=== PATIENT | male | born 1950 | race African-American/Black ===

== ENCOUNTER 2018-11-05 15:24 | Emergency (ER) | payer MEDICARE ==
[~2018-11-05] VITALS: Ht 180.3 cm; Wt 70.0 kg
[2018-11-05] MEDS ORDERED: BACITRACIN ZINC OINT UDPKT TOP ONE (18:00)
[2018-11-05] MEDS ORDERED: LIDOCAINE HCL 1% 20ML VIAL (Pyxis) INJ INFIL ONE (18:00)
[2018-11-05 18:40] VITALS: BP 150/90
[2018-11-05] MEDS ORDERED: IBUPROFEN 600MG TABLET PO ONE (18:45)
== END 2018-11-05 18:50 | disposition home or self-care (01) ==
LOC: ER 15:24
DX: R20.2 Paresthesia of skin (principal); S01.111A Laceration without foreign body of right eyelid and periocular area, initial encounter; I10 Essential (primary) hypertension; E11.9 Type 2 diabetes mellitus without complications; Y04.2XXA Assault by strike against or bumped into by another person, initial encounter; Y93.89 Activity, other specified; Y92.233 Cafeteria of hospital as the place of occurrence of the external cause
CPT/HCPCS: 12013; 99283; J3490

== ENCOUNTER 2018-11-07 03:18 | Emergency (ER) | payer MEDICARE ==
[~2018-11-07] VITALS: Ht 180.3 cm; Wt 71.0 kg
[2018-11-07 07:52] LABS: CLARITY URINE CLEAR (CLEAR); COLOR URINE YELLOW (YELLOW); KETONES URINE NEGATIVE (NEGATIVE); LEUKOCYTE ESTERASE URINE NEGATIVE (NEGATIVE); NITRITE URINE NEGATIVE (NEGATIVE); OCCULT BLOOD URINE NEGATIVE (NEGATIVE); PROTEIN URINE NEGATIVE (NEGATIVE); SPECIFIC GRAVITY URINE 1.012 (1.005-1.030); UROBILINOGEN URINE 0.2 E.U./dL (0.2-1.0)
[2018-11-07] MEDS ORDERED: ACETAMINOPHEN 325MG TABLET PO ONE (08:30)
[2018-11-07 09:53] LABS: BASOPHILS % 1.1 % (0.0-2.0); EOSINOPHILS % 2.1 % (0.0-5.0); HEMATOCRIT. 40.7 % (42.0-52.0); HEMOGLOBIN. 13.1 g/dL (14.0-18.0); LYMPHOCYTES % 27.7 % (20.0-50.0); MEAN CORPUSCULAR HEMOGLOBIN 27.1 pg (28.0-32.0); MONOCYTES % 13.8 % (2.0-8.0); NEUTROPHILS % 55.3 % (40.0-76.0); PLATELET 334 x1000/uL (130-400); RED BLOOD CELL COUNT 4.85 mill/uL (4.7-6.1); RED CELL DISTRIBUTION WIDTH 14.6 % (11.6-14.6)
[2018-11-07 10:00] LABS: CHLORIDE 110 mEq/L (98-107)
[2018-11-07 12:06] VITALS: BP 121/75
== END 2018-11-07 12:18 | disposition home or self-care (01) ==
LOC: ER 07:19
DX: R10.9 Unspecified abdominal pain (principal); M79.606 Pain in leg, unspecified; E11.9 Type 2 diabetes mellitus without complications; I10 Essential (primary) hypertension; Z87.891 Personal history of nicotine dependence; Z88.5 Allergy status to narcotic agent; Y08.89XA Assault by other specified means, initial encounter; Y93.89 Activity, other specified; Y92.89 Other specified places as the place of occurrence of the external cause; Y99.8 Other external cause status
CPT/HCPCS: 36415; 99283

== ENCOUNTER 2018-11-07 20:18 | Emergency (ER) | payer MEDICARE ==
[~2018-11-07] VITALS: Ht 180.3 cm; Wt 71.0 kg
[2018-11-07 20:52] VITALS: BP 139/83
== END 2018-11-08 02:35 | disposition left against medical advice (07) ==
LOC: ER 20:18
DX: Z53.21 Procedure and treatment not carried out due to patient leaving prior to being seen by health care provider (principal)

== ENCOUNTER 2018-11-11 22:01 | Emergency (ER) | payer MEDICARE ==
[~2018-11-11] VITALS: Ht 180.3 cm; Wt 66.0 kg
[2018-11-11] MEDS ORDERED: IBUPROFEN 800MG TABLET PO ONE (23:45)
[2018-11-12 00:12] VITALS: BP 128/81
== END 2018-11-12 00:22 | disposition home or self-care (01) ==
LOC: ER 23:35
DX: G89.29 Other chronic pain (principal); M79.604 Pain in right leg; M79.605 Pain in left leg; R20.0 Anesthesia of skin; Z48.02 Encounter for removal of sutures
CPT/HCPCS: 99282

== ENCOUNTER 2019-02-19 19:10 | Emergency (ER) | payer BC, MEDICARE ==
[~2019-02-19] VITALS: Ht 180.3 cm; Wt 70.0 kg
[2019-02-19] MEDS ORDERED: GABAPENTIN 300MG CAPSULE PO ONE (22:15)
[2019-02-20 04:20] VITALS: BP 139/85
== END 2019-02-20 06:47 | disposition home or self-care (01) ==
LOC: ER 19:10
DX: M79.606 Pain in leg, unspecified (principal); G89.29 Other chronic pain; I10 Essential (primary) hypertension; Z88.5 Allergy status to narcotic agent; Z98.890 Other specified postprocedural states
CPT/HCPCS: 99283

== ENCOUNTER 2019-04-07 03:04 | Emergency (ER) | payer BC ==
[~2019-04-07] VITALS: Ht 180.3 cm; Wt 77.0 kg
[2019-04-07] MEDS ORDERED: IBUPROFEN 600MG TABLET PO ONE (04:15)
[2019-04-07 04:22] VITALS: BP 115/71
== END 2019-04-07 04:35 | disposition home or self-care (01) ==
LOC: ER 03:04
DX: M79.672 Pain in left foot (principal); M79.671 Pain in right foot; I10 Essential (primary) hypertension; Z88.5 Allergy status to narcotic agent
CPT/HCPCS: 99282

== ENCOUNTER 2019-04-07 20:06 | Emergency (ER) | payer BC ==
[~2019-04-07] VITALS: Ht 180.3 cm; Wt 78.0 kg
[2019-04-07] MEDS ORDERED: IBUPROFEN 600MG TABLET PO ONE (22:30)
[2019-04-07] MEDS ORDERED: GABAPENTIN 300MG CAPSULE PO ONE (22:30)
[2019-04-07 23:11] VITALS: BP 141/86
== END 2019-04-07 23:12 | disposition home or self-care (01) ==
LOC: ER 20:06
DX: G89.29 Other chronic pain (principal); I10 Essential (primary) hypertension; G62.9 Polyneuropathy, unspecified; Z88.5 Allergy status to narcotic agent
CPT/HCPCS: 99283

== ENCOUNTER 2019-04-09 04:56 | Emergency (ER) | payer BC ==
[~2019-04-09] VITALS: Ht 180.3 cm; Wt 77.0 kg
[2019-04-09 05:50] VITALS: BP 131/83
[2019-04-09] MEDS ORDERED: IBUPROFEN 600MG TABLET PO ONE (07:00)
== END 2019-04-09 07:29 | disposition home or self-care (01) ==
LOC: ER 04:56
DX: G57.93 Unspecified mononeuropathy of bilateral lower limbs (principal); F17.210 Nicotine dependence, cigarettes, uncomplicated; I10 Essential (primary) hypertension
CPT/HCPCS: 99283

== ENCOUNTER 2019-04-10 03:46 | Emergency (ER) | payer BC ==
[~2019-04-10] VITALS: Ht 180.3 cm; Wt 75.9 kg
[2019-04-10 06:15] VITALS: BP 140/78
== END 2019-04-10 06:30 | disposition left against medical advice (07) ==
LOC: ER 03:46
DX: Z53.21 Procedure and treatment not carried out due to patient leaving prior to being seen by health care provider (principal)

== ENCOUNTER 2019-04-10 22:54 | Emergency (ER) | payer BC ==
[~2019-04-10] VITALS: Ht 180.3 cm; Wt 78.0 kg
[2019-04-11] MEDS ORDERED: IBUPROFEN 600MG TABLET PO ONE (02:45)
[2019-04-11 02:49] VITALS: BP 130/85
== END 2019-04-11 04:48 | disposition left against medical advice (07) ==
LOC: ER 22:54
DX: M79.672 Pain in left foot (principal); M79.671 Pain in right foot; R53.83 Other fatigue; Z59.0 Homelessness
CPT/HCPCS: 99282

== ENCOUNTER 2019-04-11 22:40 | Emergency (ER) | payer BC ==
[~2019-04-11] VITALS: Ht 180.3 cm; Wt 78.0 kg
[2019-04-12 02:20] VITALS: BP 125/84
== END 2019-04-12 02:22 | disposition home or self-care (01) ==
LOC: ER 22:40
DX: M79.672 Pain in left foot (principal); M79.671 Pain in right foot; G62.9 Polyneuropathy, unspecified; F31.9 Bipolar disorder, unspecified; I10 Essential (primary) hypertension; F20.9 Schizophrenia, unspecified; Z88.5 Allergy status to narcotic agent; Z59.0 Homelessness
CPT/HCPCS: 99281

== ENCOUNTER 2019-04-14 19:21 | Emergency (ER) | payer BC ==
[~2019-04-14] VITALS: Ht 180.3 cm; Wt 77.5 kg
[2019-04-14 20:43] VITALS: BP 160/88
== END 2019-04-14 23:25 | disposition left against medical advice (07) ==
LOC: ER 19:21
DX: R51 Headache (principal); Z53.21 Procedure and treatment not carried out due to patient leaving prior to being seen by health care provider

== ENCOUNTER 2019-04-23 21:48 | Emergency (ER) | payer BC ==
[~2019-04-23] VITALS: Ht 180.3 cm; Wt 80.0 kg
[2019-04-23 22:09] VITALS: BP 139/84
[2019-04-24] MEDS ORDERED: IBUPROFEN 600MG TABLET PO ONE (04:15)
== END 2019-04-24 05:14 | disposition home or self-care (01) ==
LOC: ER 04-24 00:28
DX: M79.672 Pain in left foot (principal); M79.671 Pain in right foot; G62.9 Polyneuropathy, unspecified; F31.9 Bipolar disorder, unspecified; F20.9 Schizophrenia, unspecified; I10 Essential (primary) hypertension; Z88.5 Allergy status to narcotic agent
CPT/HCPCS: 99282